=== PATIENT | female | born 1965 | race Caucasian/White ===

== ENCOUNTER 2017-01-19 22:32 | Emergency (ER) | payer OTHER ==
--- NOTE | ~2017-01-19 | CR126 ---
[facility]. [facility] A Service of [facility] & [facility] RADIOLOGY TEXT RESULTS PATIENT: SHARON GREY LOCATION: SED : 67 UNIT #: [id number] AGE: [address]: Jv Espinal MD SEX: F ORDER DR: [id number] [place] [id number] E MR#: [id number] Acc #: [id number] NAME: SHARON GREY : 1965 SEX: F STUDY DATE/TIME: 01/19/2017 22:44 UNIT: SED ROOM: STUDY DESCRIPTION: CR Foot Complete Min 3 View Lt Attending Physician: Jv Espinal M.D. Ordering Physician: Jv Espinal M.D. Primary Care Physician: Dragan Soto M.D. MEDICAL IMAGING REPORT This report is preliminary unless electronic signature is present. EXAM Left foot series INDICATIONS Left foot pain after fall tonight. PROCEDURE 3 views of the left foot. FINDINGS There are fractures of the fourth and fifth metatarsal heads. No significant displacement but the fractures do show mild lateral angulation. IMPRESSION Fractures of the fourth and fifth left metatarsal heads. Dictated by... John Pop M.D. THIS IS AN ELECTRONICALLY VERIFIED REPORT John Pop M.D. at 01/20/2017 10:15 PM NICHOLAS/lyric TD: 01/20/2017 02:15 JOB #: [id number] MEDICAL IMAGING REPORT Page 1 of 1
--- NOTE | ~2017-01-19 | CR20 ---
[facility]. [facility] A Service of [facility] & [facility] RADIOLOGY TEXT RESULTS PATIENT: SHARON GREY LOCATION: SED : 67 UNIT #: [id number] AGE: [address]: Jv Espinal MD SEX: F ORDER DR: [id number] [place] [id number] E MR#: [id number] Acc #: [id number] NAME: SHARON GREY : 1965 SEX: F STUDY DATE/TIME: 01/19/2017 22:44 UNIT: SED ROOM: STUDY DESCRIPTION: CR Ankle Min 3 Views Lt Attending Physician: Jv Espinal M.D. Ordering Physician: Jv Espinal M.D. Primary Care Physician: Dragan Soto M.D. MEDICAL IMAGING REPORT This report is preliminary unless electronic signature is present. EXAM Left ankle series INDICATIONS Left ankle pain after fall tonight. PROCEDURE 3 views left ankle. FINDINGS No acute fracture or dislocation. IMPRESSION No acute findings. Dictated by... Jhon Pop M.D. THIS IS AN ELECTRONICALLY VERIFIED REPORT John Pop M.D. at 01/20/2017 10:15 PM NICHOLAS/lyric TD: 01/20/2017 02:16 JOB #: [id number] MEDICAL IMAGING REPORT Page 1 of 1
[~2017-01-19 22:32] MED LIST: AMITRIPTYLINE H25 MG PO; BUSPAR15 M2 PO; FLEXERIL PO; HUMALOG100 U/M2; LANTUS100 U/ML; LIPITOR40 MG PO; LYRICA100 MG PO; METFORMIN HCL500 M1; MOTION SICKNESS25 M4 PO; NAPROXEN500 M1 PO; PRILOSEC; PRINIVIL5 MG PO; TRAMADOL HCL50 M2 PO; WELLBUTRIN SR200 MG PO
== END 2017-01-19 23:29 | disposition home or self-care (01) ==
LOC: SED 22:32
DX: S92.342A Displaced fracture of fourth metatarsal bone, left foot, initial encounter for closed fracture (principal); S92.352A Displaced fracture of fifth metatarsal bone, left foot, initial encounter for closed fracture; F17.210 Nicotine dependence, cigarettes, uncomplicated; Z88.0 Allergy status to penicillin; Z88.8 Allergy status to other drugs, medicaments and biological substances; Z79.4 Long term (current) use of insulin; Z79.899 Other long term (current) drug therapy; X50.1XXA Overexertion from prolonged static or awkward postures, initial encounter; Y92.098 Other place in other non-institutional residence as the place of occurrence of the external cause
CPT/HCPCS: 29515; 73610; 73630; 99283